=== PATIENT | male | born 1995 | race Caucasian/White ===

== ENCOUNTER 2018-06-23 12:51 | Emergency (ER) | payer SELFPAY ==
[2018-06-23 12:52] VITALS: BP 140/99; PULSE 100; RESP 14; TEMP 37.3; O2SAT 98; BMI 24.3
--- NOTE | 2018-06-23 13:21 | CT_ITS ---
STUDY: CT ABDOMEN AND PELVIS WITH CONTRAST REASON FOR EXAM: Male, 22 years old. Left lower quadrant pain. RADIATION DOSAGE (If Supplied By Facility): CTDIvol = ( 12.70 ) mGy, DLP = ( 635.70 ) mGycm TECHNIQUE: Transaxial images were obtained from the dome of the diaphragm to the symphysis pubis with oral contrast. 100 ml of Isovue 300 contrast was administered. Sagittal and coronal images were reconstructed. Individualized dose optimization techniques were used for this CT. COMPARISON: None. FINDINGS: The visualized lung bases are unremarkable. The visualized portions of the heart are within normal limits. Normal liver. Normal gallbladder and extrahepatic biliary system. Normal spleen. Normal pancreas. Normal bilateral adrenal glands. Normal right kidney. Normal left kidney. There is a small hiatal hernia. Normal small intestine. There are scattered colonic diverticula consistent with diverticulosis. The appendix is visualized and appears normal. Normal abdominal aorta. Normal inferior vena cava. Normal retroperitoneum. Normal urinary bladder. Normal abdominal wall. Normal osseous structures. CT/Abdomen/Pelvis WITH Contrast IMPRESSION: Normal enhanced CT of the abdomen and pelvis. Electronically Signed: Joshua Herrera MD at 15:52 EDT Tel [phone], Service support ,
[2018-06-23] MEDS: Ketorolac 30 MG/ML Syringe IV (13:44)
[2018-06-23] MEDS: 0.9% Normal Saline 1,000 ML 125 ML IV (13:44)
[2018-06-23] MEDS: Morphine 4 MG/ML Syringe IV (13:44)
[2018-06-23] MEDS: Ondansetron 4 MG/2 ML Vial IV (13:44)
[2018-06-23 14:02] LABS: Absolute Lymphocyte Count 1.36 X10^3/ul (0.83-4.51); Absolute Neutrophil Count 3.1 X10^3/uL (2.0-7.7); Basophil# 0.01 X10^3/uL; Basophil% 0.2 % (0-1); Eosinophil# 0.12 X10^3/uL; Eosinophils% 2.3 % (0-5); Hematocrit 47.9 % (40-54); Lymphocyte # 1.36 X10^3/ul (4.0); Lymphocyte % 26.4 % (19-41); Mean Corp Hgb Conc 33.4 g/gl (32-36); Mean Corpuscular Hgb 29.7 pg (27.0-32.0); Monocyte# 0.52 X10^3/uL; Monocyte% 10.1 % (0-10); Neutrophil # 3.13 X10^3/uL (2.7-7.7); Neutrophil % 60.8 % (47-70); Platelet Count 177 K/mm3 (150-450); RBC Distribution Width CV 12.5 % (11.6-14.6); RBC Distribution Width SD 39.8 fl (35.1-43.9); Red Blood Count 5.38 M/mm3 (4.6-6.2); White Blood Count 5.2 K/mm3 (4.4-11.0)
[2018-06-23 14:06] LABS: POSITIVE COUNT NO; POSITIVE DIFFERENTIAL NO; POSITIVE MORPHOLOGY NO
[2018-06-23 14:07] LABS: Anion Gap 5 (5-15); BUN 16 mg/dL (7-18); BUN/Creat Ratio 14.5 RATIO (10-20); Calcium,Total 9.2 mg/dL (8.5-10.1); Chloride 104 mmol/L (98-107); EST Glomerular Filtration Rate 89 mL/min (>60); Est Glom Filt Rate - Afr Amer 108 mL/min (>60); Glucose 84 mg/dL (74-106); Potassium 4.5 mmol/L (3.5-5.1); Sodium Level 140 mmol/L (136-145)
[2018-06-23 15:20] LABS: Bacteria 0 SEEN /hpf (None Seen); Mucous, Urine 0 SEEN /hpf (<or=2+); Red Blood Cells-Urine 0 SEEN /hpf (0-5); Squamous Epithelial Cells - UA 0 SEEN /hpf (0-5); White Blood Cells 0 SEEN /hpf (0-5)
[2018-06-23 15:26] LABS: Color, Urine Yellow (Yellow); Glucose, Dipstick Normal (Normal); Ketone-Dipstick Negative (Negative); Leukocyte Esterase-Dipstick 25 /ul (Negative); Nitrite-Dipstick Negative (Negative); Occult Blood-Urine Negative /ul (Negative); Protein-Dipstick Negative (Negative); Specific Gravity, Urine 1.015 (1.002-1.030); Urine Bilirubin Dipstick Negative (Negative); Urine Clarity Sl. Cloudy (Clear); Urine Urobilinogen Normal (Normal)
[2018-06-23 15:36] LABS: Amorphous Sediment 1+
--- NOTE | 2018-06-23 16:07 | ED.VISSUMM ---
- ER Visit Summary Date of Service: 06/23/18 Chief Complaint: [Abdominal pain] History of Present Illness: The patient is a 22 M presents with abdominal pain that he has had for 2-3 months. Patient states the pain is continuous. He rates it currently an 8 out of 10. Patient describes it as left lower quadrant at times radiating into his left testicle. Patient denies any urinary symptoms. He denies any abnormal penile discharge. His last bowel movement was 2 days ago. He has had no fever. He had no vomiting. He denies any blood in his stool or black tarry stools. Physical examination- HEENT-PERRLA, EOMI. Cranial nerves II through XII grossly intact. TMs clear. Mucous membranes moist. No adenopathy. Cardiovascular-regular rate and rhythm without murmur or ectopy Lungs-clear to auscultation, chest wall stable without crepitus or subcu emphysema Abdomen-normoactive bowel sounds, soft patient has tenderness to palpation over left lower quadrant with some guarding. There is no rebound, rigidity, or perineal signs. No masses palpated. exam-normal external genitalia. Patient has no masses palpated in the inguinal canals. No testicular masses palpated. Minimal discomfort over the left epididymis. Extremities-intact ?4, normal range of motion, normal pulses, atraumatic] Test Results: [CBC with differential showing a 5.2, hemoglobin 16, hematocrit 48, platelets 177. Chemistries unremarkable. Urinalysis was normal. CT scan of the abdomen pelvis with IV p.o. contrast was normal.] Emergency Department Course and Treatment: [Patient was medicated with Toradol, morphine, and Zofran.] Treatment Plan: [Patient will be given a prescription for [place] for pain and referral to general surgeon independent contractor.] Disposition: [Discharged home in stable condition] Impression: [Abdominal pain-etiology uncertain] This note was generated with StorSimple dictation software. It may contain incorrect words, spelling, and punctuation that were not noted in review of the chart prior to signing ED Disposition - Plan for ED Patient: Chief Complaint: Abd Pain Referrals: Gabriela Evans [Primary Care Provider] -
--- NOTE | 2018-06-23 16:10 | ED.DCSUM_ITS ---
- ER Visit Summary Date of Service: 06/23/18 Chief Complaint: [Abdominal pain] History of Present Illness: The patient is a 22 M presents with abdominal pain that he has had for 2-3 months. Patient states the pain is continuous. He rates it currently an 8 out of 10. Patient describes it as left lower quadrant at times radiating into his left testicle. Patient denies any urinary symptoms. He denies any abnormal penile discharge. His last bowel movement was 2 days ago. He has had no fever. He had no vomiting. He denies any blood in his stool or black tarry stools. Physical examination- HEENT-PERRLA, EOMI. Cranial nerves II through XII grossly intact. TMs clear. Mucous membranes moist. No adenopathy. Cardiovascular-regular rate and rhythm without murmur or ectopy Lungs-clear to auscultation, chest wall stable without crepitus or subcu emphysema Abdomen-normoactive bowel sounds, soft patient has tenderness to palpation over left lower quadrant with some guarding. There is no rebound, rigidity, or perineal signs. No masses palpated. exam-normal external genitalia. Patient has no masses palpated in the inguinal canals. No testicular masses palpated. Minimal discomfort over the left epididymis. Extremities-intact ?4, normal range of motion, normal pulses, atraumatic] Test Results: [CBC with differential showing a 5.2, hemoglobin 16, hematocrit 48, platelets 177. Chemistries unremarkable. Urinalysis was normal. CT scan of the abdomen pelvis with IV p.o. contrast was normal.] Emergency Department Course and Treatment: [Patient was medicated with Toradol, morphine, and Zofran.] Treatment Plan: [Patient will be given a prescription for [place] for pain and referral to general surgeon box person.] Disposition: [Discharged home in stable condition] Impression: [Abdominal pain-etiology uncertain] This note was generated with René[employer] dictation software. It may contain incorrect words, spelling, and punctuation that were not noted in review of the chart prior to signing ED Disposition - Plan for ED Patient: Chief Complaint: Abd Pain Referrals: Gabriela Evans [Primary Care Provider] -
--- NOTE | 2018-06-23 16:10 | ED.DEP ---
ED Disposition - Plan for ED Patient: Chief Complaint: Abd Pain Instructions: ED Abdominal Pain Unkn Cause Prescriptions: Hydrocodone/Acetaminophen [[place] 5-325 Tablet] 1 - 2 ea PO 4X/DAY PRN PRN 3 Days #12 tab PRN Reason: Pain Referrals: Johanny Colon MD [STAFF PHYSICIAN] - 3-5 Days
[2018-06-23 16:18] VITALS: BP 126/76; PULSE 77; RESP 16; O2SAT 98
== END 2018-06-23 16:20 | disposition home or self-care (01) ==
LOC: ED 13:25
PROVIDERS: Emergency Provider Emergency Medicine; Family Provider Family Medicine; PCP Family Medicine
DX: R10.9 Unspecified abdominal pain (principal); Z72.0 Tobacco use; Z86.14 Personal history of Methicillin resistant Staphylococcus aureus infection
CPT/HCPCS: 74177; 80048; 81001; 85025; 96361; 96374; 96375; 99283; Q9967; J2405

== ENCOUNTER 2019-07-28 06:29 | Emergency (ER) | payer MEDICAID, SELFPAY ==
[2019-07-28] VITALS (13 sets, daily range): BP systolic 108–153; BP diastolic 57–105; PULSE 105–132; RESP 12–25; TEMP 36.1; O2SAT 97–100; BMI 25.7
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
--- NOTE | 2019-07-28 06:35 | ED.RN ---
IO IN LEFT TIBIA INSERTED BY KAROLINA Miguel CLINICAL NURSING INSTRUCTOR [facility]
[2019-07-28] MEDS: Propofol 200 MG/20 ML Vial 50 MG IV BOLUS ×2 (06:49→06:54)
[2019-07-28] MEDS: Propofol 10MG/Ml 1,000 MG/100 ML Bottle 4.9 MG CONT INF (06:49)
[2019-07-28] MEDS: fentaNYL 100 MCG/2 ML Ampul IV ×2 (06:53→07:00)
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
[2019-07-28] MEDS: Rocuronium Bromide 50 MG/5 ML Vial 70 MG IV (07:04)
[2019-07-28] MEDS: Cefazolin 1 GM/50 ML BAG IV (07:15)
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
--- NOTE | 2019-07-28 07:30 | ED.RN ---
Crepitus noted on front of neck over trachea with swelling from front of neck to left side of neck.
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
--- NOTE | 2019-07-28 08:18 | ED.RN ---
Trauma blood initiated at 0713 in left AC with pressure bag. T: 97.9 (TA).
--- NOTE | 2019-07-28 08:26 | ED.RN ---
Ellen arrived at 0704 and departed at 0730.
== END 2019-07-28 07:45 | disposition short-term general hospital (02) ==
PROVIDERS: Emergency Provider Emergency Medicine; Family Provider Family Medicine; PCP Family Medicine
DX: S11.90XA Unspecified open wound of unspecified part of neck, initial encounter (principal); W34.00XA Accidental discharge from unspecified firearms or gun, initial encounter; Y93.9 Activity, unspecified; Y92.89 Other specified places as the place of occurrence of the external cause; Y99.9 Unspecified external cause status; F17.200 Nicotine dependence, unspecified, uncomplicated; F19.90 Other psychoactive substance use, unspecified, uncomplicated
CPT/HCPCS: 31500; 36430; 51702; 70250; 71045; 86644; 86900; 86901; 99251; 99285; J7030; P9040; A4216; G0463

== ENCOUNTER 2019-09-03 14:56 | Inpatient (IN) | payer MEDICAID, SELFPAY ==
[2019-07-28 06:40] VITALS: BMI 25.7
[2019-09-03 14:57] VITALS: BP 121/72; PULSE 103; RESP 18; TEMP 37; O2SAT 98; BMI 21.7
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
--- NOTE | 2019-09-03 15:13 | ED.VIS.GEN ---
History of Present Illness Chief Complaint: Weakness Informant: Patient Onset: Days Context: Gradual Onset Narrative: Patient is a 23-year-old male with history of IV drug use presenting with painless jaundice. Patient states over the past few days has had increased yellowing of his eyes and his urine. He denies any associated nausea or abdominal pain. He notes he has been more tired lately. He does admit to IV drug use. He states he uses IV methamphetamines. He notes he used to use fentanyl but stopped. Patient is worried he has hepatitis. He denies any itching of his skin. He denies any nausea, vomiting, chest pain, shortness of breath or difficulty breathing. He denies any fever or chills. Patient notes he is continued to have bowel movements about every other day. 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 Past Medical History - Allergies and Home Meds Allergies/Adverse Reactions: Allergies No Known Allergies Allergy (Verified 09/03/19 15:00) Primary Care Physician: Gabriela Evans [NON-STAFF] - Past Medical History: - - IV drug use Surgical History: noncontributory Smoking Status: Unknown if ever smoked Review of Systems General: Reports: Malaise. Denies: Chills, Fever, Sweats Eyes: Reports: - - Yellowing of the eyes. Denies: Visual changes - bilaterally, Diplopia ENT: Denies: Rhinorrhea, Sore throat Cardiovascular: Denies: Chest pain, Palpitations Respiratory: Denies: Dyspnea, Cough, Dyspnea on exertion Gastrointestinal: Denies: Abdominal pain, Nausea, Vomiting, Diarrhea, Melena, Hematochezia Genitourinary: Reports: - - Darker urine. Denies: Dysuria, Hematuria, Frequency Musculoskeletal: Denies: Back pain, Extremity Pain Skin: Denies: Rash, Wounds Neurological: Denies: Headache, Weakness, Numbness Physical Exam Vital Signs/Narrative: Vital Signs Temp Pulse Resp BP Pulse Ox 09/03/19 14:57 98.6 F 103 H 18 121/72 H 98 Inital Vital Signs reviewed: Yes General: Well nourished, Well developed, No Acute Distress Head: Normocephalic, Atraumatic Eyes: Perrl, EOMI, Scleral icterus ENT: Moist mucous membranes, No rhinorrhea Neck: Supple, Nontender Cardiovascular: Regular rate, Regular rhythm, No murmurs Respiratory: No distress, CTA bilaterally, Chest nontender Abdomen: Soft, Nontender, Nondistended, Normal bowel sounds, Hepatomegaly. Negative for: Guarding, Rebound tenderness, Mass, Yung's sign Back: Nontender, Normal Inspection Extremities: Nontender, No edema Skin: No rash, Jaundice - mild Neurological: Alert, Oriented x3, Cranial nerves II-XII grossly intact, Normal Strength, Normal Sensation Psychological: Normal affect, Normal Mood Diagnostic/Tx/Re-eval Laboratory Data 09/03/19 09/03/19 09/03/19 15:35 15:35 15:35 WBC 4.7 RBC 4.32 L Hgb 11.9 L Hct 37.6 L MCV 87.0 MCH 27.5 MCHC 31.6 L RDW Std Deviation 52.4 H RDW Coeff of Kwame 16.3 H Plt Count 205 MPV 9.8 Immature Gran % (Auto) 0.400 Neut % (Auto) 61.4 Lymph % (Auto) 26.5 [place] % (Auto) 8.5 Eos % (Auto) 3.0 Baso % (Auto) 0.2 Absolute Neuts (auto) 2.9 Absolute Lymphs (auto) 1.25 Nucleated RBC % 0 Sodium 137 Potassium 4.1 Chloride 105 Carbon Dioxide 29.0 Anion Gap 3 L BUN 8 Creatinine 0.74 Estim Creat Clear Calc 160.73 Est GFR (MDRD) Af Amer 170 Est GFR (MDRD) Non-Af 140 BUN/Creatinine Ratio 10.9 Glucose 93 Calcium 8.2 L Total Bilirubin 7.40 H Direct Bilirubin 5.59 H AST 1442 H ALT 2068 H Alkaline Phosphatase 303 H Total Protein 6.9 Albumin 2.9 L Globulin 4.0 Lipase 133 Urine Color Urine Clarity Urine pH Ur Specific [place] Urine Protein Urine Glucose (UA) Urine Ketones Urine Occult Blood Urine Nitrite Urine Bilirubin Urine Urobilinogen Ur Leukocyte Esterase Urine RBC Urine WBC Ur Squamous Epith Cells Urine Bacteria Urine Mucus Monoscreen Negative 09/03/19 15:35 WBC RBC Hgb Hct MCV MCH MCHC RDW Std Deviation RDW Coeff of Kwame Plt Count MPV Immature Gran % (Auto) Neut % (Auto) Lymph % (Auto) [place] % (Auto) Eos % (Auto) Baso % (Auto) Absolute Neuts (auto) Absolute Lymphs (auto) Nucleated RBC % Sodium Potassium Chloride Carbon Dioxide Anion Gap BUN Creatinine Estim Creat Clear Calc Est GFR (MDRD) Af Amer Est GFR (MDRD) Non-Af BUN/Creatinine Ratio Glucose Calcium Total Bilirubin Direct Bilirubin AST ALT Alkaline Phosphatase Total Protein Albumin Globulin Lipase Urine Color Yellow Urine Clarity Sl. Cloudy Urine pH 5.0 Ur Specific [place] 1.025 Urine Protein 15 H Urine Glucose (UA) Normal Urine Ketones 5 H Urine Occult Blood 10 H Urine Nitrite Positive H Urine Bilirubin 6 H Urine Urobilinogen 12 H Ur Leukocyte Esterase 25 H Urine RBC 0 SEEN Urine WBC 0-5 SEEN Ur Squamous Epith Cells 0-5 SEEN Urine Bacteria RARE Urine Mucus 0 SEEN Monoscreen - Medical Decision Making Patient is evaluated for new onset of jaundice. It is painless. He does have a history of IV methamphetamine abuse. There is hepatitis in the community. Is possible that he is acute hepatitis. Patient does have a significant transaminitis as well as elevated direct bilirubin on exam. Does not have any tenderness in his abdomen. He is otherwise well-appearing. I do think he would benefit from admission for his acute hepatitis and further evaluation, especially as he does not have outpatient follow-up. Patient is mildly anemic. He is asymptomatic from this. He denies any black or bloody stools. [place] screen is negative. Urinalysis does show bilirubin it also shows nitrates. He is not having urinary symptoms. Urine culture is sent. Patient is signed out to Dr. Lyn for review of CT abd/pelvis and likely admission. ED Disposition - Plan for ED Patient: Diagnosis: Painless jaundice, Transaminitis Referrals: Gabriela Evans [NON-STAFF] -
[2019-09-03 15:46] LABS: Mucous, Urine 0 SEEN /hpf (<or=2+); Red Blood Cells-Urine 0 SEEN /hpf (0-5)
[2019-09-03 15:51] LABS: Absolute Lymphocyte Count 1.25 X10^3/uL (0.83-4.51); Absolute Neutrophil Count 2.9 X10^3/uL (2.0-7.7); Basophil# 0.01 X10^3/uL; Basophil% 0.2 % (0-1); Eosinophil# 0.14 X10^3/uL; Hematocrit 37.6 % (40-54); Hemoglobin 11.9 g/dL (13.0-16.5); Lymphocyte # 1.25 X10^3/ul (4.0); Lymphocyte % 26.5 % (19-41); Mean Corp Hgb Conc 31.6 g/dL (32-36); Mean Corpuscular Hgb 27.5 pg (27.0-32.0); Mean Platelet Vol. 9.8 fl (6.2-12.0); Monocyte% 8.5 % (0-10); NRBC Flagged by Analyzer 0 % (0-5); Neutrophil % 61.4 % (47-70); Platelet Count 205 K/mm3 (150-450); RBC Distribution Width CV 16.3 % (11.6-14.6); RBC Distribution Width SD 52.4 fl (35.1-43.9); Red Blood Count 4.32 M/mm3 (4.6-6.2); White Blood Count 4.7 K/mm3 (4.4-11.0)
[2019-09-03 16:08] LABS: Color, Urine Yellow (Yellow); Glucose, Dipstick Normal (Normal); Ketone-Dipstick 5 mg/dl (Negative); Leukocyte Esterase-Dipstick 25 /ul (Negative); Nitrite-Dipstick Positive (Negative); Occult Blood-Urine 10 /ul (Negative); Protein-Dipstick 15 mg/dl (Negative); Specific Gravity, Urine 1.025 (1.002-1.030); Urine Clarity Sl. Cloudy (Clear); Urine Urobilinogen 12 mg/dl (Normal)
[2019-09-03 16:12] LABS: Urine Bilirubin Dipstick 6 mg/dL (Negative)
[2019-09-03 16:29] LABS: AST(SGOT) 1442 U/L (15-37); Alanine Aminotransfer ALT/SGPT 2068 U/L (16-61); Albumin, Serum 2.9 g/dL (3.2-5.0); Alkaline Phosphatase 303 U/L (45-117); Anion Gap 3 (5-15); BUN 8 mg/dL (7-18); BUN/Creat Ratio 10.9 RATIO (10-20); Bilirubin, Direct 5.59 mg/dL (0.00-0.30); Calcium,Total 8.2 mg/dL (8.5-10.1); Chloride 105 mmol/L (98-107); Creatinine, Serum 0.74 mg/dL (0.70-1.30); EST Glomerular Filtration Rate 140 mL/min (>60); Est Glom Filt Rate - Afr Amer 170 mL/min (>60); Estimated Creatinine Clearance 160.73 ml/min; Glucose 93 mg/dL (74-106); Lipase 133 U/L (73-393); Potassium 4.1 mmol/L (3.5-5.1); Protein, Total 6.9 g/dL (6.4-8.2); Sodium Level 137 mmol/L (136-145)
[2019-09-03 16:42] LABS: Internal QC Validated? YES +Cl - CLEAR BKGD; Monotest Negative (Negative)
[2019-09-03 16:55] LABS: Squamous Epithelial Cells - UA 0-5 SEEN /hpf (0-5)
[2019-09-03 16:56] LABS: Bacteria RARE /hpf (None Seen); White Blood Cells 0-5 SEEN /hpf (0-5)
[2019-09-03 17:14] VITALS: BP 103/60; PULSE 83; RESP 16; O2SAT 100
--- NOTE | 2019-09-03 17:15 | US_ITS ---
STUDY: ABDOMINAL ULTRASOUND - RIGHT UPPER QUADRANT REASON FOR VISIT: Male, 23 years old jaundice TECHNIQUE: Ultrasound evaluation of the right upper quadrant was performed with real-time and static gomez-scale imaging. TECHNICAL QUALITY: Adequate. COMPARISON: CT abdomen and pelvis earlier FINDINGS: Liver: The liver measures 17.7 cm. There is normal echogenicity of the liver. The bile ducts are dilated. There is hepatic color flow. The direction of portal flow is hepatopetal. There is no demonstrated mass lesion. Gallbladder: There is a contracted gallbladder. The gallbladder wall measures 6 mm. There is a negative sonographic Yung''s sign. There is pericholecystic fluid. There are no gallstones. Common Bile Duct (C.B.D.): The common bile duct measures 3 mm. Pancreas: Normal size of the head, body and tail of the pancreas. There is normal echogenicity of the pancreas. There is no demonstrated pancreatic mass or cyst. Right Kidney: Normal size of the right kidney. The right kidney measures 11.8 cm. Normal renal cortex. The right cortex measures 2.2 cm. There is no demonstrated renal mass or cyst. There is no right hydronephrosis. US/Gallbladder IMPRESSION: Again noted is abnormal appearance of the gallbladder as seen on CT. Mild intrahepatic biliary ductal dilation. No definitive gallstones however. Gallbladder wall thickening with pericholecystic fluid. Electronically Signed: Latrell Logan DO at 18:01 EST Tel , Service support ,
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
[2019-09-03 18:52] VITALS: BP 118/66; PULSE 75; RESP 18; O2SAT 95
[2019-09-03 18:56] VITALS: BMI 21.7
[2019-09-03 19:12] VITALS: BMI 19.5
[2019-09-03 19:19] VITALS: BP 112/68; PULSE 90; RESP 14; TEMP 36.8; O2SAT 98
[2019-09-03 20:16] LABS: International Normalized Ratio 1.1
[2019-09-03 20:19] LABS: Amphetamine Urine VISTA POSITIVE (<1000 ng/mL); Barbiturate Urine VISTA NEGATIVE (< 200 ng/mL); Benzodiazepine Urine VISTA NEGATIVE (< 200 ng/mL); Cocaine Urine VISTA NEGATIVE (< 300 ng/mL); Ecstacy Urine VISTA NEGATIVE (< 500 ng/mL); Methadone Urine VISTA NEGATIVE (< 300 ng/mL); PCP Urine VISTA NEGATIVE (< 25 ng/mL); THC Urine VISTA POSITIVE (< 50 ng/mL); Vista UDS pH Range 6
[2019-09-03] MEDS: 0.9% Normal Saline 1,000 ML 125 ML IV (21:03)
[2019-09-03 21:48] LABS: HIV - WCH Non-Reactive (Nonreactive)
[2019-09-03] MEDS: Famotidine 20 MG Tablet PO (22:22)
[2019-09-04 02:26] VITALS: BP 95/53; PULSE 101; RESP 16; TEMP 36.9; O2SAT 98
[2019-09-04] MEDS: 0.9% Normal Saline 1,000 ML 125 ML IV (04:19)
[2019-09-04 07:55] LABS: ALB/GLOB Ratio 0.7 RATIO (0.9-2.4); AST(SGOT) 993 U/L (15-37); Alanine Aminotransfer ALT/SGPT 1653 U/L (16-61); Albumin, Serum 2.6 g/dL (3.2-5.0); Alkaline Phosphatase 306 U/L (45-117); Anion Gap 2 (5-15); BUN 6 mg/dL (7-18); BUN/Creat Ratio 9.2 RATIO (10-20); Calcium,Total 8.3 mg/dL (8.5-10.1); Chloride 107 mmol/L (98-107); Creatinine, Serum 0.65 mg/dL (0.70-1.30); EST Glomerular Filtration Rate 162 mL/min (>60); Est Glom Filt Rate - Afr Amer 196 mL/min (>60); Estimated Creatinine Clearance 164.69 ml/min; Globulin 3.8 g/dL (2.2-4.2); Glucose 90 mg/dL (74-106); Potassium 4.3 mmol/L (3.5-5.1); Protein, Total 6.4 g/dL (6.4-8.2); Sodium Level 140 mmol/L (136-145)
[2019-09-04 10:00] VITALS: BP 120/75; PULSE 98; RESP 16; TEMP 36.8; O2SAT 96
[2019-09-04] MEDS: Famotidine 20 MG Tablet PO (10:13)
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
--- NOTE | 2019-09-04 14:17 | DS.PCM_ITS ---
Discharge Date and Diagnosis Date of Admission: 09/03/19 Date of Discharge: 09/04/19 - Primary Discharge Diagnosis Acute hepatitis Nicotine dependence Polysubstance use disorder - Secondary Discharge Diagnosis Chronic Problems Tobacco dependence (Chronic) Polysubstance abuse (Chronic) Hospital Course and Treatment Imaging Results: Clinical Impression(s) from Imaging Studies Abdomen/Pelvis CT 09/03/19 15:12 IMPRESSION: Markedly abnormal appearance of the gallbladder. The gallbladder appears significantly contracted. There appears to be prominent pericholecystic fluid. No definitive stones. There is also intrahepatic biliary ductal dilation which was not seen on the prior exam. Further evaluation with gallbladder ultrasound may be helpful. Electronically Signed: Latrell Logan DO at 17:10 EST Tel , Service support , Gallbladder Ultrasound 09/03/19 17:15 IMPRESSION: Again noted is abnormal appearance of the gallbladder as seen on CT. Mild intrahepatic biliary ductal dilation. No definitive gallstones however. Gallbladder wall thickening with pericholecystic fluid. Electronically Signed: Latrell Logan DO at 18:01 EST Tel , Service support , None Operations: None Procedures: None Summary of Care Provided: The patient is a 23 year old M with past medical history of polysubstance use disorder -IV drug user and uses IV amphetamines who comes in with complaints of jaundice of the skin in the eyes as well as chills, generalized malaise and dark urine. Patient's vitals were stable in the emergency department. His bilirubin was elevated at 7.4, AST 1442, ALT 2068, ALP 303. CT scan of the abdomen and pelvis showed contracted gallbladder with prominent pericholecystic fluid but no definite stones. His urine tox was positive for amphetamines and cannabinoids patient was admitted to the MedSurg floor, managed on IV fluids. His liver enzymes improved with hydration. HIV was negative, hepatitis panel was pending at time of discharge. Patient was not willing to stay further in the hospital. He signed AGAINST MEDICAL ADVICE. Subjective: See progress note Objective: See progress note - Physical Exam Vitals/I&O's: Vital Signs Temp Pulse Resp BP Pulse Ox 98.3 F 98 16 120/75 96 09/04/19 10:00 09/04/19 10:00 09/04/19 10:00 09/04/19 10:00 09/04/19 10:00 Oxygen Delivery Method Room Air Weight: 65.3 kg Body Mass Index (BMI) 19.5 Intake and Output for Last 24 Hours 09/02/19 09/03/19 09/04/19 23:59 23:59 23:59 Intake Total 2191.25 / 2191.25 Output Total 1100 / 1100 Balance 1091.25 / 1091.25 Laboratory Results 09/03/19 15:35: WBC 4.7, RBC 4.32 L, Hgb 11.9 L, Hct 37.6 L, MCV 87.0, MCH 27.5, MCHC 31.6 L, RDW Std Deviation 52.4 H, RDW Coeff of Kwame 16.3 H, Plt Count 205, MPV 9.8, Immature Gran % (Auto) 0.400, Neut % (Auto) 61.4, Lymph % (Auto) 26.5, [place] % (Auto) 8.5, Eos % (Auto) 3.0, Baso % (Auto) 0.2, Absolute Neuts (auto) 2.9, Absolute Lymphs (auto) 1.25, Nucleated RBC % 0 09/03/19 15:35: Sodium 137, Potassium 4.1, Chloride 105, Carbon Dioxide 29.0, Anion Gap 3 L, BUN 8, Creatinine 0.74, Estim Creat Clear Calc 160.73, Est GFR (MDRD) Af Amer 170, Est GFR (MDRD) Non-Af 140, BUN/Creatinine Ratio 10.9, Glucose 93, Calcium 8.2 L, Total Bilirubin 7.40 H, Direct Bilirubin 5.59 H, AST 1442 H, ALT 2068 H, Alkaline Phosphatase 303 H, Total Protein 6.9, Albumin 2.9 L , Globulin 4.0, Lipase 133 09/03/19 15:35: Monoscreen Negative 09/03/19 15:35: Hepatitis A IgM Ab Pending, Hep Bs Antigen Pending, Hep B Core IgM Ab Pending, Hepatitis C Ab (EIA) Pending 09/03/19 15:35: Urine Color Yellow, Urine Clarity Sl. Cloudy, Urine pH 5.0, Ur S pecific [place] 1.025, Urine Protein 15 H, Urine Glucose (UA) Normal, Urine Ketones 5 H, Urine Occult Blood 10 H, Urine Nitrite Positive H, Urine Bilirubin 6 H, Urine Urobilinogen 12 H, Ur Leukocyte Esterase 25 H, Urine RBC 0 SEEN, Urine WBC 0-5 SEEN, Ur Squamous Epith Cells 0-5 SEEN, Urine Bacteria RARE, Urine Mucus 0 SEEN 09/03/19 15:35: Urine Opiates Screen NEGATIVE, Urine Methadone Screen NEGATIVE, Ur Barbiturates Screen NEGATIVE, Ur Phencyclidine Scrn NEGATIVE, Ur Amphetamines Screen POSITIVE H, U Methamphetamin-MDMA NEGATIVE, U Benzodiazepines Scrn NEGATIVE, Urine Cocaine Screen NEGATIVE, U Cannabinoids Screen POSITIVE H, Ur Drug Screen Comment 09/03/19 19:56: HIV 1&2 Antibody Non-Reactive 09/03/19 19:56: PT 14.0, INR 1.1 09/04/19 05:53: Sodium 140, Potassium 4.3, Chloride 107, Carbon Dioxide 31.0, Anion Gap 2 L, BUN 6 L, Creatinine 0.65 L, Estim Creat Clear Calc 164.69, Est GFR (MDRD) Af Amer 196, Est GFR (MDRD) Non-Af 162, BUN/Creatinine Ratio 9.2 L, Glucose 90, Calcium 8.3 L, Total Bilirubin 6.90 H, AST 993 H, ALT 1653 H, Alkaline Phosphatase 306 H, Total Protein 6.4, Albumin 2.6 L, Globulin 3.8, Albumin/Globulin Ratio 0.7 L Discharge Diet: No Restrictions Discharge Activity: Return to Normal Activity Home Medications: Medications to take at Discharge NK 09/03/19 Primary Care Physician: Gabriela Evans [NON-STAFF] - Disposition: Home Minutes spent on discharge:: 35 Patient Condition:: Stable Medical Necessity - Tobacco Use Smoking Status: Current every day smoker Tobacco Use: Cigarettes, - Meaningful Use Info Meaningful Use Diagnoses (Choose all that apply): None applicable Code Visit Inpatient E&M: 68409 Subs Hosp L2
[2019-09-09 14:28] LABS: HEPATITIS B SURFACE AG Negative (Negative); Hepatitis A IgM Antibody Positive (Negative); Hepatitis B Core AB IgM Negative (Negative)
[2019-09-09 15:01] LABS: Hep C Antibodies >11.0 s/co ratio (0.0-0.9)
== END 2019-09-04 12:41 | disposition left against medical advice (07) ==
LOC: ED 15:37 → MS3 19:13
PROVIDERS: Emergency Medicine; Admitting Provider Internal Medicine; Emergency Provider Emergency Medicine; Visit Provider Internal Medicine
DX: B17.9 Acute viral hepatitis, unspecified (principal); F17.210 Nicotine dependence, cigarettes, uncomplicated; F19.10 Other psychoactive substance abuse, uncomplicated; Z23 Encounter for immunization
CPT/HCPCS: 36415; 74177; 76705; 80048; 80053; 80074; 80076; 80307; 81001; 83690; 85025; 85610; 86308; 86703; 87086; 99284; 99406; J7030; Q9967; 90686; A4216

== ENCOUNTER 2023-01-19 19:49 | Inpatient (IN) | payer MEDICAID, SELFPAY ==
[2023-01-19 19:50] VITALS: BP 126/70; PULSE 81; RESP 17; TEMP 35.9; O2SAT 100; BMI 25.0
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
[2023-01-19 20:19] LABS: Absolute Lymphocyte Count 1.93 X10^3/uL (0.83-4.51); Absolute Neutrophil Count 3.6 X10^3/uL (2.0-7.7); Basophil# 0.02 X10^3/uL; Basophil% 0.3 % (0-1); Eosinophil# 0.08 X10^3/uL; Eosinophils% 1.3 % (0-5); Hematocrit 45.9 % (40-54); Hemoglobin 14.9 g/dL (13.0-16.5); Lymphocyte # 1.93 X10^3/ul (0.83-4.51); Mean Corp Hgb Conc 32.5 g/dL (32-36); Mean Corpuscular Hgb 28.3 pg (27.0-32.0); Mean Corpuscular Volume 87.3 fL (80-94); Mean Platelet Vol. 9.3 fl (6.2-12.0); Monocyte# 0.42 X10^3/uL; NRBC Flagged by Analyzer 0 % (0-5); Neutrophil # 3.58 X10^3/uL (2.7-7.7); Neutrophil % 59.2 % (47-70); Platelet Count 234 K/mm3 (150-450); RBC Distribution Width CV 11.8 % (11.6-14.6); RBC Distribution Width SD 37.8 fl (35.1-43.9); Red Blood Count 5.26 M/mm3 (4.6-6.2)
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
[2023-01-19 20:34] LABS: Anion Gap 1 (5-15); BUN 20 mg/dL (7-18); BUN/Creat Ratio 21.6 RATIO (10-20); Calcium,Total 9.4 mg/dL (8.5-10.1); Chloride 101 mmol/L (98-107); Creatinine, Serum 0.93 mg/dL (0.70-1.30); EST Glomerular Filtration Rate 105 mL/min (>60); Est Glom Filt Rate - Afr Amer 126 mL/min (>60); Estimated Creatinine Clearance 132.11 ml/min; Glucose 90 mg/dL (74-106); Potassium 4.1 mmol/L (3.5-5.1); Sodium Level 136 mmol/L (136-145)
[2023-01-19 20:38] LABS: Alcohol, Blood (Medical)-Serum < 3.0 mg/dL
[2023-01-19 20:44] LABS: Amphetamine Urine VISTA POSITIVE (<1000 ng/mL); Barbiturate Urine VISTA NEGATIVE (< 200 ng/mL); Benzodiazepine Urine VISTA NEGATIVE (< 200 ng/mL); Cocaine Urine VISTA NEGATIVE (< 300 ng/mL); Ecstacy Urine VISTA POSITIVE (< 500 ng/mL); Methadone Urine VISTA NEGATIVE (< 300 ng/mL); PCP Urine VISTA NEGATIVE (< 25 ng/mL); THC Urine VISTA NEGATIVE (< 50 ng/mL); Vista UDS pH Range 6
[2023-01-19 21:11] VITALS: BP 108/60; PULSE 18; RESP 84; TEMP 36.8; O2SAT 93
[2023-01-19 21:32] VITALS: BMI 24.3
[2023-01-19 21:43] VITALS: BP 106/70; PULSE 74; RESP 16; TEMP 36.8; O2SAT 99
[2023-01-20 03:38] VITALS: BP 109/72; PULSE 84; RESP 16; TEMP 36.3; O2SAT 100
[2023-01-20] MEDS: Methocarbamol 750 MG Tablet 1500 MG PO (03:45)
--- NOTE | 2023-01-20 07:53 | PN.HOSP_ITS ---
Reason for Visit Reason for Visit: Diagnoses Opioid dependence, uncomplicated (01/19/23) Other stimulant abuse, uncomplicated (01/19/23) Nicotine dependence, unspecified, uncomplicated (01/19/23) Subjective Subjective Patient is a 27-year-old gentleman with history of polysubstance abuse admitted with acute opioid withdrawal Objective Data Objective Data Vital Signs: Vital Signs Temp Pulse Resp BP Pulse Ox O2 Del Method 97.4 F L 84 16 109/72 100 Room Air 01/20/23 03:38 01/20/23 03:38 01/20/23 03:38 01/20/23 03:38 01/20/23 03:38 01/20/23 03:38 Oxygen Delivery Method Room Air Weight: 81.193 kg Body Mass Index (BMI) 24.3 Lab / Micro Data Result Diagrams: 01/19/23 20:10 01/19/23 20:10 Labs: Laboratory Results - last 24 hr 01/19/23 20:10: WBC 6.0, RBC 5.26, Hgb 14.9, Hct 45.9, MCV 87.3, MCH 28.3, MCHC 32.5, RDW Std Deviation 37.8, RDW Coeff of Kwame 11.8, Plt Count 234, MPV 9.3, Immature Gran % (Auto) 0.200, Neut % (Auto) 59.2, Lymph % (Auto) 32.0, [place] % (Auto) 7.0, Eos % (Auto) 1.3, Baso % (Auto) 0.3, Absolute Neuts (auto) 3.6, Absolute Lymphs (auto) 1.93, Nucleated RBC % 0 01/19/23 20:10: Sodium 136, Potassium 4.1, Chloride 101, Carbon Dioxide 34.0 H, Anion Gap 1 L, BUN 20 H, Creatinine 0.93, Estim Creat Clear Calc 132.11, Est GFR (MDRD) Af Amer 126, Est GFR (MDRD) Non-Af 105, BUN/Creatinine Ratio 21.6 H, Glucose 90, Calcium 9.4 01/19/23 20:10: Ethyl Alcohol < 3.0 01/19/23 20:15: Urine Opiates Screen NEGATIVE, Urine Methadone Screen NEGATIVE, Ur Barbiturates Screen NEGATIVE, Ur Phencyclidine Scrn NEGATIVE, Ur Amphetamines Screen POSITIVE H, MDMA (Ecstasy) Screen POSITIVE H, U Benzodiazepines Scrn NEGATIVE, Urine Cocaine Screen NEGATIVE, U Cannabinoids Screen NEGATIVE, Ur Drug Screen Comment Physical Exam Narrative GENERAL: cooperative HEENT: Atraumatic; normocephalic EYES; Anicteric, Normal Conjunctiva NECK; supple, normal thyroid, RESPIRATORY: Diminished to auscultation CARDIOVASCULAR: Regular S1 S2, GI: soft, normoactive bowel sounds, : No Renal angle tenderness; EXTREMITIES: No edema, no clubbing, MUSCULOSKELETAL: no muscle wasting NEURO: Awake; no lateralizing signs. SKIN: No Rash PSYCH; Flat affect Assessment & Plan Assessment/Plan (1) Opiate dependence: (2) Methamphetamine abuse: (3) Desire for detoxification: (4) Tobacco dependence: PLAN: Plan Patient is a 27-year-old gentleman with history of polysubstance abuse admitted with acute opioid withdrawal 1. 1. Acute opioid withdrawal - Patient has been admitted to regular nursing floor, managed buprenorphine taper along with other adjunctive medications for medical stabilization 2. Methamphetamine abuse ? Symptomatic treatment 3. Tobacco dependence - Counseled on cessation, offered nicotine patch for tobacco cravings 4. DVT prophylaxis ? Low risk did encourage ambulation Time spent in the patient's overall evaluation,decision-making process, review of diagnostic data, adjustment of management, discussion with other providers, nursing nursing and ancillary staff involved in patient's care documentation, 35 Minutes Charges/Coding Visit Charges Inpatient E&M: 43284 Subs Hosp L2
[2023-01-20 11:00] VITALS: BP 106/66; PULSE 84; RESP 18; TEMP 36.7; O2SAT 98
[2023-01-20 12:59] VITALS: BP 102/67; PULSE 87; RESP 12; TEMP 36.5; O2SAT 100
--- NOTE | 2023-01-20 15:24 | DS.PCM_ITS ---
Providers Date of Admission: 01/19/23 Date of Discharge: 01/20/23 Primary Care Physician: Yulisa Primary Care Phys Reason For Visit: DESIRE FOR OPIOID DETOXIFICATION Diagnosis Discharge Diagnosis (1) Opiate dependence: Status: Acute Code(s): F11.20 - Opioid dependence, uncomplicated (2) Methamphetamine abuse: Status: Acute Code(s): F15.10 - Other stimulant abuse, uncomplicated (3) Desire for detoxification: Status: Acute (4) Tobacco dependence: Status: Chronic Code(s): F17.200 - Nicotine dependence, unspecified, uncomplicated Plan Patient is a 27-year-old gentleman with history of polysubstance abuse admitted with acute opioid withdrawal 1. 1. Acute opioid withdrawal - Patient has been admitted to regular nursing floor, managed buprenorphine taper along with other adjunctive medications for medical stabilization ? Patient signed out AGAINST MEDICAL ADVICE 2. Methamphetamine abuse ? Symptomatic treatment 3. Tobacco dependence - Counseled on cessation, offered nicotine patch for tobacco cravings 4. DVT prophylaxis ? Low risk did encourage ambulation Time spent in the patient's overall evaluation,decision-making process, review of diagnostic data, adjustment of management, discussion with other providers, nursing nursing and ancillary staff involved in patient's care documentation, 35 Minutes Medications at Discharge Home Medications NK 09/03/19 Hospital Course Summary of Care Provided Minutes Spent on Discharge: 35 Physical Exam Narrative GENERAL: cooperative HEENT: Atraumatic; normocephalic EYES; Anicteric, Normal Conjunctiva NECK; supple, normal thyroid, RESPIRATORY: Diminished to auscultation CARDIOVASCULAR: Regular S1 S2, GI: soft, normoactive bowel sounds, : No Renal angle tenderness; EXTREMITIES: No edema, no clubbing, MUSCULOSKELETAL: no muscle wasting NEURO: Awake; no lateralizing signs. SKIN: No Rash PSYCH; Flat affect Weight / BMI Weight Weight: 81.193 kg Body Mass Index (BMI) 24.3 ABG / Lab / Microbiology Data Result Diagrams: 01/19/23 20:10 01/19/23 20:10 Laboratory: Laboratory Results - last 24 hr 01/19/23 20:10: WBC 6.0, RBC 5.26, Hgb 14.9, Hct 45.9, MCV 87.3, MCH 28.3, MCHC 32.5, RDW Std Deviation 37.8, RDW Coeff of Kwame 11.8, Plt Count 234, MPV 9.3, Immature Gran % (Auto) 0.200, Neut % (Auto) 59.2, Lymph % (Auto) 32.0, [place] % (Auto) 7.0, Eos % (Auto) 1.3, Baso % (Auto) 0.3, Absolute Neuts (auto) 3.6, Abso lute Lymphs (auto) 1.93, Nucleated RBC % 0 01/19/23 20:10: Sodium 136, Potassium 4.1, Chloride 101, Carbon Dioxide 34.0 H, Anion Gap 1 L, BUN 20 H, Creatinine 0.93, Estim Creat Clear Calc 132.11, Est GFR (MDRD) Af Amer 126, Est GFR (MDRD) Non-Af 105, BUN/Creatinine Ratio 21.6 H, Glucose 90, Calcium 9.4 01/19/23 20:10: Ethyl Alcohol < 3.0 01/19/23 20:15: Urine Opiates Screen NEGATIVE, Urine Methadone Screen NEGATIVE, Ur Barbiturates Screen NEGATIVE, Ur Phencyclidine Scrn NEGATIVE, Ur Amphetamines Screen POSITIVE H, MDMA (Ecstasy) Screen POSITIVE H, U Benzodiazepines Scrn NEGATIVE, Urine Cocaine Screen NEGATIVE, U Cannabinoids Screen NEGATIVE, Ur Drug Screen Comment Meaningful Use Info Meaningful Use Diagnoses (Choose all that apply): None applicable Discharge Plan Admission Admit Date/Time: 01/19/23 20:31 Attending Provider: Tobi Rodriguez Primary Care Provider: Care Physician,No Primary Consulting Providers: Nils Dobbins Discharge Orders/Prescriptions Prescriptions: No Action NK Referrals / Follow Up: Care Physician,No Primary [Primary Care Provider] - Disposition Disposition (needs filled in before D/C Order can be placed): Against Medical Advice Charges/Coding Visit Charges Inpatient E&M: 27339 Disch Hosp >30min
== END 2023-01-20 15:25 | disposition left against medical advice (07) | DRG 770 ==
LOC: ED 20:38 → MS3 21:06
PROVIDERS: Nurse Practitioner; Admitting Provider Hospitalist; Emergency Provider Emergency Medicine; Visit Provider Internal Medicine
DX: F11.23 Opioid dependence with withdrawal (principal); F15.10 Other stimulant abuse, uncomplicated; F17.210 Nicotine dependence, cigarettes, uncomplicated; F41.9 Anxiety disorder, unspecified; Z86.14 Personal history of Methicillin resistant Staphylococcus aureus infection
CPT/HCPCS: 36415; 80048; 80307; 82077; 85025; 99283; 99406